=== PATIENT | female | born 1985 | race Caucasian/White ===

== ENCOUNTER → 2020-01-12 14:15 | Outpatient (CLI) | payer BC, SELFPAY ==
--- NOTE | ~2020-01-12 | MMUS_ITS ---
EXAMINATION: MM diagnostic maranda LT w daysi, US breast LT limited HISTORY: Palpable left breast abnormality TECHNIQUE: Additional 3-D tomosynthesis images of the left breast were performed and synthetic 2-D im ages were generated. CAD analysis was submitted and interpreted. High resolution left breast ultrasou nd was performed. COMPARISON: None BREAST PARENCHYMAL COMPOSITION: The breasts are heterogenously dense, which may obscure small masses FINDINGS: MAMMOGRAPHIC FINDINGS: There is a cluster of nonspecific calcifications in the upper outer quadrant of the left breast poste riorly. No discrete mass or architectural distortion is identified. ULTRASOUND: Targeted left breast ultrasound: Normal heterogeneous echotexture without focal solid or cystic mass. IMPRESSION: 1. Clustered nonspecific calcifications upper outer quadrant of the left breast posteriorly. BI-RADS CATEGORY 4-SUSPICIOUS ABNORMALITY RECOMMENDATION: Stereotactic left breast biopsy recommended. Reviewed, dictated and finalized at location A. IMPRESSION: 1. Clustered nonspecific calcifications upper outer quadrant of the left breast posteriorly. BI-RADS CATEGORY 4-SUSPICIOUS ABNORMALITY RECOMMENDATION: Stereotactic left breast biopsy recommended.
== END ==
PROVIDERS: Visit Provider Obstetrics & Gynecology
DX: N63.20 Unspecified lump in the left breast, unspecified quadrant (principal); R92.8 Other abnormal and inconclusive findings on diagnostic imaging of breast
CPT/HCPCS: 76642; 77061; 77065; G0279

== ENCOUNTER → 2020-07-24 06:25 | Outpatient (CLI) | payer BC, SELFPAY ==
[2020-07-24 22:49] LABS: SARS-CoV-2 RNA PCR Negative
== END ==
PROVIDERS: PCP Family Medicine; Visit Provider Obstetrics & Gynecology
DX: Z01.812 Encounter for preprocedural laboratory examination (principal); Z20.822 Contact with and (suspected) exposure to COVID-19
CPT/HCPCS: C9803; U0003; U0005

== ENCOUNTER 2020-07-27 00:53 | Day surgery (SDC) | payer BC, SELFPAY ==
[2020-07-20 10:49] VITALS: BMI 20.3
[2020-07-27 08:33] VITALS: BP 115/68; PULSE 57; RESP 16; TEMP 36.6; O2SAT 100
[2020-07-27] MEDS: ACETAMINOPHEN 500 MG TABLET 1000 MG PO (09:01)
[2020-07-27] MEDS: LACTATED RINGERS 1,000 ML 30 ML IV CONT (09:15)
--- NOTE | 2020-07-27 09:31 | WPDHPUPDATE1 ---
History and Physical Update Update Date/Time: 07/27/20 09:31 History and Physical has been reviewed, including an updated exam of the patient. There are NO changes in the patient's condition. Risks, benefits, and alternatives have been discussed and questions answered. Patient agrees to proceed with procedure.
--- NOTE | 2020-07-27 09:48 | P.PNAN_ITS ---
Anes - Initial Pre Proc Eval Procedure: Operation Date: 07/27/20 10:30 Proposed Procedures p Labiaplasty - Ezekiel Mora MD Date/Time: 07/27/20 09:48 Surgeon: Ezekiel Mora MD Pre Op Diagnosis: hypertrophy of labia Patient Data Age: 35 Gender: F Height: 5 ft 7 in Weight: 60.8 kg Last Vital Signs Temp 97.9 F 07/27/20 08:33 Pulse 57 L 07/27/20 08:33 Resp 16 07/27/20 08:33 BP 115/68 07/27/20 08:33 Pulse Ox 100 07/27/20 08:33 Allergies Allergy/AdvReac Type Severity Reaction Status Date / Time latex AdvReac Mild CHEMICAL Verified 07/27/20 08:39 TYPE RASH FROM GLOVES Home Medications Medication Instructions Recorded Confirmed Type Adults Multivitamin 1 tablet BYMOUTH DAILY 07/20/20 07/27/20 History Patient hx anesthesia problems: none Family hx anesthesia problems: none PMFSH Past Medical History Medical History (Updated 03/29/20 @ 15:58 by Saurav Hermosillo MD) Anemia Bleeding ulcer Chronic interstitial cystitis Fungal infection of toenail GERD (gastroesophageal reflux disease) IUD (intrauterine device) in place Kidney stone UTI (urinary tract infection) Surgical History Surgical History H/O LEEP History of lumpectomy of left breast Hx of shoulder surgery right x2 Family History Family History Grandparent Family history of premature coronary heart disease, Onset Age: 60 Hypertension Family history of elevated blood lipids Malignant neoplasm of prostate Family history of irritable bowel syndrome Social History Social History (Updated 03/29/20 @ 14:59 by Judy Phillips MA) Smoking packs per day: 0.5 Smoking cigarettes per day: 10.0 Years smoked: 10 Smoking pack-years: 5.00 Smoking status: Former smoker Tobacco type: cigarettes Second hand tobacco smoke exposure: Yes Smoking end date: 06/04/16 Alcohol intake: current Drinks per week: 3 Substance use: never Substance use type: does not use Last use: 5 years ago Living arrangements: with family Gender identity (if verbalized by the patient): Female Sexual Orientation (if Verbalized by the Patient): Straight or Heterosexual Spiritual care concerns: No Anes - Eval Final PreProcedure Day of Procedure 07/27/20 09:48 Patient weight: normal Heart: regular rate and rhythm Lungs: clear to auscultation Airway: Mallampati scale class II Neurological: alert and oriented Last oral intake: >/= 8 hours ASA classification: II Emergent: no Anesthetic plan: proceed Anesthesia type and monitoring: general GIVS and standard monitoring Informed Consent: The patient's anesthetic plan and its attendant risks and benefits were discussed with the patient/family/POA. Questions were solicited an d answers provided to the satisfaction of the patient/family/POA.
[2020-07-27 10:00] VITALS: BP 109/71; PULSE 54; RESP 16; TEMP 37.2; O2SAT 100
[2020-07-27] MEDS: ceFAZolin 2 GM/D5W 50 ML 2 GM/50 ML BAG IVPB (10:04)
[2020-07-27] MEDS: LIDO 1%/EPINEPHRINE 1:100,000 50 ML VIAL INFILTRATE (10:26)
--- NOTE | 2020-07-27 10:45 | SUR.OPER ---
LOCAL INJECTED 1017 AT START AND START OF 2ND LABIA.
[2020-07-27 10:51] VITALS: BP 102/64; PULSE 52; RESP 14; O2SAT 98
--- NOTE | 2020-07-27 10:56 | P.OP_ITS ---
Procedure Note - Detailed Date of procedure: 07/27/20 Pre-op diagnosis: hypertrophy of labia Post-op diagnosis: same Procedure performed: Labial plasty, bilateral Description of procedure: The patient was taken the operating room. She was pre pped and draped in dorsal lithotomy position. After mac anesthesia was found be adequate the labia were injected with lidocaine bilaterally. The redundant labia skin of the labia minora was marked with a pen. The margins where incisions were to be made were demarcated with the marking pen. Using Metzenbaum scissors the redundant labia was transected in an anterior-posterior direction. The cautery was used to make the cut surface hemostatic. The labia was then closed with interrupted sutures of 3 0 Vicryl. The patient tolerated the procedure well. She was taken recovery in stable condition. Sponge lap needle counts were correct x2. Surgeon: Ezekiel Mora MD Estimated blood loss (mL): 10 Drains: No Packing: No Pathology: none sent Complications: No immediate complications Condition: stable Disposition: same day Findings: Hypertrophy of bilateral labia minora, otherwise normal
[2020-07-27 11:20] VITALS: BP 116/75; PULSE 50
[2020-07-27 11:50] VITALS: BP 106/67; PULSE 43; RESP 14
[2020-07-27 12:20] VITALS: BP 110/67; PULSE 50; RESP 14
--- NOTE | 2020-07-27 12:43 | SUR.PHASEII ---
1240 pt is doing well, vss, minimal pain. pt waiting on a ride, pt disconnected from vital machine and iv fluids.
== END 2020-07-27 13:38 | disposition home or self-care (01) ==
PROVIDERS: PCP Family Medicine; Visit Provider Obstetrics & Gynecology
PROC: (CPT 56620; principal; 2020-07-27 10:30)
DX: N90.60 Unspecified hypertrophy of vulva (principal); Z87.891 Personal history of nicotine dependence
CPT/HCPCS: 56620; A9270; J0690; J2250; J2405; J2704; J3010; J7120

== ENCOUNTER 2021-02-01 10:54 | Outpatient (CLI) | payer BC, SELFPAY ==
--- NOTE | ~2021-02-01 | US_ITS ---
Please refer to diagnostic mammogram report dated 02/01/2021 for details. Reviewed, dictated and finalized at location A.
--- NOTE | ~2021-02-01 | MM_ITS ---
EXAMINATION: MM diagnostic maranda BI w daysi HISTORY: Palpable right breast abnormality. TECHNIQUE: Additional 3-D tomosynthesis images of the breasts were performed and synthetic 2-D images were generated. CAD analysis was submitted and interpreted. High resolution complete bilateral breas t ultrasound was performed. COMPARISON: Comparison to multiple prior studies sequentially, with oldest reviewed study dated 01/11. BREAST PARENCHYMAL COMPOSITION: The breasts are extremely dense, which lowers the sensitivity of mamm ography. FINDINGS: MAMMOGRAPHIC FINDINGS: There are no suspicious masses, calcifications or architectural distortion in either breast to sugges t malignancy. ULTRASOUND: Complete bilateral breast ultrasound: There are multiple bilateral simple and complicated cysts of andrew th breasts, largest in the right breast at 12:00, 2 cm from the nipple measuring 2.4 cm. There is a c luster of microcysts in the right breast at 4:00, 4 cm from the nipple measuring 6 mm. There is a com plicated 9 mm cyst in the left breast at 11:00, 3 cm from the nipple. No suspicious masses to suggest malignancy. IMPRESSION: 1. No evidence for malignancy in either breast. Multiple bilateral breast cysts. 2. Routine yearly screening mammogram and regular clinical breast examination are recommended. BI-RADS Category 2: Benign finding(s). Reviewed, dictated and finalized at location A. IMPRESSION: 1. No evidence for malignancy in either breast. Multiple bilateral breast cysts . 2. Routine yearly screening mammogram and regular clinical breast examination a re recommended. BI-RADS Category 2: Benign finding(s).
== END 2021-02-01 10:55 | disposition home or self-care (01) ==
LOC: ANHIMG 10:56
PROVIDERS: PCP Family Medicine; Visit Provider Advanced Practice Midwife
DX: N63.10 Unspecified lump in the right breast, unspecified quadrant (principal); R92.2 Inconclusive mammogram
CPT/HCPCS: 76641; 77062; 77066; G0279

== ENCOUNTER 2022-09-17 04:12 | Emergency (ER) | payer BC, SELFPAY ==
--- NOTE | ~2022-09-17 | CT_ITS ---
EXAMINATION: CTA chest PE protocol DATE: 09/17/2022 06:12 INDICATION: Chest pain, history of thoracic outlet syndrome TECHNIQUE: Computed tomography angiography (CTA) of the chest was performed with 100 mL Omnipaque-350 intravenous contrast timed to evaluate the pulmonary arteries. Coronal maximum intensity projection 3D-reconstructions were created by the technologist. The dose-length product (DLP) was 172.91 mGy-cm. Automated exposure control and iterative reconstruction technique were employed. COMPARISON: None. FINDINGS: The pulmonary arteries are well-opacified. No pulmonary embolism is identified. Lungs are f ree of acute opacities. No pleural effusion or pneumothorax. No pathologically enlarged thoracic lymp h nodes are identified. The heart size is normal. IMPRESSION: 1. No pulmonary embolism or acute cardiopulmonary abnormality. Reviewed, dictated and finalized at location A.
[2022-09-17 04:16] VITALS: BP 141/94; PULSE 84; RESP 19; TEMP 36.7; O2SAT 100
--- NOTE | 2022-09-17 05:00 | ECG_ITS ---
Measurements Intervals [place] Rate: 67 P: 78 [place]: 174 QRS: 44 QRSD: 98 T: 18 QT: 410 QTc: 436 Interpretive Statements SINUS RHYTHM POSSIBLE RIGHT VENTRICULAR CONDUCTION DELAY [RSR (QR) IN V1/V2] NO PREVIOUS ECG AVAILABLE FOR COMPARISON Electronically Signed On 09-17-2022 9:23:16 CDT by Courtney Nathan M.D.
[2022-09-17 05:17] VITALS: PULSE 89
[2022-09-17 05:19] LABS: Basophils Absolute Auto 0.1 K/mm3 (0.0-0.1); Eosinophils Absolute Auto 0.1 K/mm3 (0-0.3); Eosinophils Percent Auto 2.4 % (0-4.4); Hematocrit 40.2 % (37.0-47.0); Immature Granulocyte Absolute 0.01 K/mm3 (0.00-0.031); Immature Granulocyte Percent A 0.2 % (0-0.5); Lymphocytes Absolute Auto 1.45 K/mm3 (0.9-3.2); Lymphocytes Percent Auto 24.7 % (18.3-44.2); Mean Corpuscular HGB Conc 32.3 g/dl (32-36); Mean Corpuscular Volume 92.8 fl (80-100); Mean Platelet Volume 9.6 fl (7.4-10.4); Monocytes Absolute Auto 0.4 K/mm3 (0.1-0.6); Monocytes Percent Auto 7.2 % (2.6-8.5); Neutrophils Absolute Auto 3.8 K/mm3 (1.3-6.7); Neutrophils Percent Auto 64.5 % (45.5-73.1); Platelet Count Result 249 k/mm3 (150-375); Red Blood Count 4.33 M/mm3 (4.2-5.4); White Blood Count 5.9 K/mm3 (4.5-10.0)
[2022-09-17 05:29] LABS: Alanine Aminotransferase 19 U/L (6-35); Albumin Level 4.5 g/dL (3.5-5.1); Alkaline Phosphatase 62 U/L (38-126); Anion Gap 6 mmol/L (8-16); Aspartate Amino Transferase 24 U/L (14-36); Bilirubin,Total 0.4 mg/dL (0.2-1.3); Blood Urea Nitrogen 12 mg/dL (7-17); Calcium 8.7 mg/dL (8.4-10.2); Carbon Dioxide 30 mmol/L (22-30); Chloride 102 mmol/L (98-107); Estimated CRCL calculation 100 ml/min; Estimated Glomerular Filt Rate > 60; Glucose 98 mg/dL (65-110); Potassium 3.9 mmol/L (3.4-5.0); Sodium 138 mmol/L (137-145)
[2022-09-17 05:31] LABS: Prothrombin Time 12.6 Seconds (11.1-14.7)
[2022-09-17 05:32] LABS: Partial Thromboplastin Time 29.9 SECONDS (22.3-36.8)
--- NOTE | 2022-09-17 05:36 | ED.GENADULT ---
HPI - General Adult General Chief complaint: Unspecified <Yossi Meneses MD - Last Filed: 09/17/22 07:39> Stated complaint: Right sided collar bone pain <Yossi Meneses MD - Last Filed: 09/17/22 07:39> Time Seen by Provider: 09/17/22 04:48 <Yossi Meneses MD - Last Filed: 09/17/22 07:39> History of Present Illness HPI narrative: Patient 36-year-old female who presents the emergency department with chief complaint of right sided clavicle area discomfort. The patient reports she has history of thoracic outlet syndrome and has had several spinal surgeries. Patient reports that she has a fullness feeling in the right anterior chest and reports that she is concerned that she may have a thrombus. The patient reports that she has a tightness feeling there and reports that its been there all day. The patient states that its not improved by anything and reports not worsened by anything. <Yossi Meneses MD - Last Filed: 09/17/22 07:39> Related Data Home medications: Home Medications Medication Instructions Recorded Confirmed Adults Multivitamin 1 tablet BYMOUTH DAILY 07/20/20 07/27/20 <Yossi Meneses MD - Last Filed: 09/17/22 07:39> Allergies/adverse reactions: Allergies Allergy/AdvReac Type Severity Reaction Status Date / Time latex AdvReac Mild CHEMICAL Verified 09/17/22 04:13 TYPE RASH FROM GLOVES <Yossi Meneses MD - Last Filed: 09/17/22 07:39> Review of Systems Review of Systems: A 10 system review of systems was completed on the patient and is negative except for what is stated in the HPI. Nursing and ancillary documentation was reviewed. <Yossi Meneses MD - Last Filed: 09/17/22 07:39> PMF Past Medical History Medical History: Medical History Anemia Bleeding ulcer Breast cancer screening by mammogram (04/06/22) very dense breast. Mammogram negative. Recheck in 1 year. Chronic interstitial cystitis Fungal infection of toenail GERD (gastroesophageal reflux disease) IUD (intrauterine device) in place Kidney stone UTI (urinary tract infection) <Yossi Meneses MD - Last Filed: 09/17/22 07:39> Surgical History Surgical History: Surgical History H/O LEEP History of lumpectomy of left breast Hx of shoulder surgery right x2 <Yossi Meneses MD - Last Filed: 09/17/22 07:39> Family History Family History: Family History Grandparent Family history of premature coronary heart disease, Onset Age: 60 Hypertension Family history of elevated blood lipids Malignant neoplasm of prostate Family history of irritable bowel syndrome <Yossi Meneses MD - Last Filed: 09/17/22 07:39> Social History Social History: Social History Smoking packs per day: 0.5 Smoking cigarettes per day: 10.0 Years smoked: 10 Smoking pack-years: 5.00 Smoking status: Former smoker Tobacco type: cigarettes Second hand tobacco smoke exposure: Yes Smoking end date: 06/04/16 Alcohol intake: current Drinks per week: 3 Substance use: never Substance use type: does not use Last use: 5 years ago Living arrangements: with family Gender identity (if verbalized by the patient): Female Sexual Orientation (if Verbalized by the Patient): Straight or Heterosexual Spiritual care concerns: No <Yossi Meneses MD - Last Filed: 09/17/22 07:39> Exam Narrative: GENERAL: Well-appearing, well-nourished, and in no acute distress. HEAD: Normocephalic, atraumatic. EYES: PERRLA and EOMI. ENT: Nares clear, no rhinorrhea or epistaxis. Mucous membranes moist. NECK: Supple. CHEST: Clear to auscultatio
[2022-09-17 05:41] LABS: Troponin I < 0.012 ng/mL (0.000-0.034)
[2022-09-17 08:16] VITALS: BP 113/72; PULSE 86; RESP 18; O2SAT 100
[2022-09-17 09:03] VITALS: BP 113/72; PULSE 80; RESP 18; O2SAT 98
== END 2022-09-17 09:05 | disposition home or self-care (01) ==
PROVIDERS: Emergency Medicine; Emergency Provider Emergency Medicine; PCP Family Medicine Sports Medicine
DX: G54.0 Brachial plexus disorders (principal); D64.9 Anemia, unspecified; K21.9 Gastro-esophageal reflux disease without esophagitis; Z87.442 Personal history of urinary calculi; Z87.440 Personal history of urinary (tract) infections
CPT/HCPCS: 36415; 71275; 80053; 84484; 85025; 85610; 85730; 93005; 99284; Q9967

== ENCOUNTER 2024-03-04 08:30 | Inpatient (IN) | payer BC, SELFPAY ==
[2024-03-04 08:37] VITALS: BP 132/89; PULSE 91; RESP 16; TEMP 36.3; O2SAT 100
[2024-03-04] MEDS: KETOROLAC 30 MG/ML VIAL (*BKC) IM (08:57)
[2024-03-04] MEDS: HYDROcodone/acetaminophen (*CRX) 5-325 MG TABLET 2 TAB PO (08:58)
[2024-03-04 10:05] LABS: Basophils Absolute Auto 0.1 K/mm3 (0.0-0.1); Basophils Percent Auto 0.4 % (0.2-1.2); Eosinophils Absolute Auto 0.1 K/mm3 (0-0.3); Eosinophils Percent Auto 0.6 % (0-4.4); Hematocrit 36.3 % (37.0-47.0); Immature Granulocyte Absolute 0.05 K/mm3 (0.00-0.031); Immature Granulocyte Percent A 0.4 % (0-0.5); Lymphocytes Absolute Auto 1.06 K/mm3 (0.9-3.2); Lymphocytes Percent Auto 8.5 % (18.3-44.2); Mean Corpuscular HGB Conc 33.1 g/dl (32-36); Mean Corpuscular Hemoglobin 30.8 pg (26-34); Mean Corpuscular Volume 93.3 fl (80-100); Mean Platelet Volume 9.3 fl (7.4-10.4); Monocytes Absolute Auto 0.7 K/mm3 (0.1-0.6); Monocytes Percent Auto 5.2 % (2.6-8.5); Neutrophils Absolute Auto 10.6 K/mm3 (1.3-6.7); Neutrophils Percent Auto 84.9 % (45.5-73.1); Platelet Count Result 223 k/mm3 (150-375); Red Blood Count 3.89 M/mm3 (4.2-5.4); White Blood Count 12.5 K/mm3 (4.5-10.0)
[2024-03-04 10:15] LABS: Alanine Aminotransferase 17 U/L (6-35); Albumin Level 4.3 g/dL (3.5-5.1); Alkaline Phosphatase 69 U/L (38-126); Anion Gap 10 mmol/L (4-12); Aspartate Amino Transferase 26 U/L (14-36); Bilirubin,Total 0.6 mg/dL (0.2-1.3); Blood Urea Nitrogen 6 mg/dL (7-17); Calcium 8.9 mg/dL (8.4-10.2); Carbon Dioxide 23 mmol/L (22-30); Chloride 104 mmol/L (98-107); Estimated CRCL calculation 103 ml/min; Estimated Glomerular Filt Rate > 60; Glucose 96 mg/dL (65-110); Sodium 137 mmol/L (137-145)
[2024-03-04] MEDS: SODIUM CHLORIDE 0.9% IV 1,000 ML 999 ML IV CONT (10:15)
--- NOTE | 2024-03-04 10:26 | ED.GENADULT ---
HPI - General Adult General Chief complaint: Wound/Laceration Stated complaint: infected spider bite Time Seen by Provider: 03/04/24 08:40 History of Present Illness HPI narrative: This is a 38-year-old female presenting ED with chief complaint of spider bite to her left buttocks. Several days ago she put on a pair of shorts felt pain in her left glute. She thought she saw to spider bites. One of them healed well but the other 1 became red and infected it started about purulent discharge. She had been placed on Bactrim and clindamycin on an outpatient basis but the redness and pain have continued to worsen. She has developed subjective fevers. She denies nausea vomiting or diarrhea. Related Data Home Medications Medication Instructions Recorded Confirmed Adults Multivitamin 1 tablet BYMOUTH DAILY 07/20/20 07/27/20 Allergies Allergy/AdvReac Type Severity Reaction Status Date / Time latex AdvReac Mild CHEMICAL Verified 03/04/24 08:33 TYPE RASH FROM GLOVES PMFSH Past Medical History Medical History Anemia Bleeding ulcer Breast cancer screening by mammogram (04/06/22) very dense breast. Mammogram negative. Recheck in 1 year. Chronic interstitial cystitis Fungal infection of toenail GERD (gastroesophageal reflux disease) IUD (intrauterine device) in place Kidney stone UTI (urinary tract infection) Surgical History Surgical History H/O LEEP History of lumpectomy of left breast Hx of shoulder surgery right x2 Family History Family History Grandparent Family history of premature coronary heart disease, Onset Age: 60 Hypertension Family history of elevated blood lipids Malignant neoplasm of prostate Family history of irritable bowel syndrome Social History Social History Smoking packs per day: 0.5 Smoking cigarettes per day: 10.0 Years smoked: 10 Smoking pack-years: 5.00 Smoking status: Former smoker Tobacco type: cigarettes Second hand tobacco smoke exposure: Yes Smoking end date: 06/04/16 Alcohol intake: current Drinks per week: 3 Substance use: never Substance use type: does not use Last use: 5 years ago Living arrangements: with family Gender identity (if verbalized by the patient): Female Sexual Orientation (if Verbalized by the Patient): Straight or Heterosexual Spiritual care concerns: No Exam Narrative: APPEARANCE: No apparent distress. Head: atraumatic. EYES: EOMI, NOSE: Atraumatic NECK: Trachea midline RESPIRATORY: No increased rate of breathing CARDIOVASCULAR: RRR, ABDOMINAL: Non-distended MUSCULOSKELETAl: No obvious deformities NEURO: Alert. Moving 4/4 extremities SKIN:: Left glute shows a area of central induration and fluctuance. Mild erythema around the site PSYCHIATRIC: Normal affect Course Vital Signs Vital signs: Vital Signs Temperature 97.4 F L 03/04/24 08:37 Pulse Rate 91 03/04/24 08:37 Respiratory Rate 16 03/04/24 08:37 Blood Pressure 132/89 03/04/24 08:37 Pulse Oximetry 100 03/04/24 08:37 Temperature 98.2 F 03/04/24 12:43 Pulse Rate 78 03/04/24 12:43 Respiratory Rate 20 03/04/24 12:43 Blood Pressure 110/73 03/04/24 12:43 Pulse Oximetry 100 03/04/24 12:43 Procedures Abscess I/D other: Date of Incision: 03/04/24 Side (if applicable): left Local Anesthetic: bupivacaine 0.25% Amount of anesthesia used (mL): 10 Technique: incised with #11 blade Amount of fluid expressed (mL): 10 Irrigation: Yes Packing used?: none I&D Results: Pus and Blood Complications: bleeding Medical Decision Making MDM Narrative Medical decision making narrative: -Course: 38-year-old female presenting ED with c
[2024-03-04] MEDS: VANCOMYCIN 1,250 MG/NS 250 ML 1,250 MG/250 ML BAG 166.67 MG IVPB ×2 (11:31→23:15)
[2024-03-04 12:43] VITALS: BP 110/73; PULSE 78; RESP 20; TEMP 36.8; O2SAT 100
--- NOTE | 2024-03-04 13:33 | PM.IMHP ---
H&P: HPI History of Present Illness Date/Time: 03/04/24 13:33 Chief Complaint: Insect Bite Narrative: 38 y/o F presents here with spider bite with PMH of anemia, bleeding ulcer, chronic interstitial cystitis, GERD, and kidney stones. The patient presents here from home for further evaluation of a spider bite to her left buttock. On 02/27 she reports she was putting on a pair of shorts when she noted two areas that were concerning for spider bites to her left buttock. States the wounds were not there that morning. Per her initial evaluation, there were 2 small areas that appeared to be spider bites. One of the wounds healed well without antibiotic intervention. However, the other site developed erythema, pain, and primarily discharged on XX. She initially sought care at a local Urgent Care and was placed on Bactrim 800/160 mg b.i.d. x7 days which she took 4 doses of. Pain continued to worsen and went to her PCP office yesterday and was started on clindamycin 300 mg t.i.d. x7 days. She reports she had purulent drainage then. She was able to take 2 doses of the clindamycin. Despite adjusting therapy, the patient reports the area became more firm and painful overnight. Patient has recently been on multiple antibiotic courses the last 6 months including Augmentin on 01/31/2024 for a UTI. Also on doxycycline, metronidazole, and ciprofloxacin in September of 2023 for a vulvar abscess which she reports did heal without incident or I&D. Currently endorsing body aches, headache, fever, chills/night sweats. Initial VS at presentation: 97.4? F, HR 91, RR 16, 132/89, and 100% on RA. ED workup showed: WBC 12.5, no anemia, no significant electrolyte derangements, creatinine 0.6 and GFR >60. Review of Systems Review of Systems: All systems reviewed & are unremarkable except as noted in HPI and below PMFSH Past Medical History Medical History (Updated 03/04/24 @ 16:11 by Marianne Kenny APRN) Anemia Bleeding ulcer (2009) Breast cancer screening by mammogram (04/06/22) very dense breast. Mammogram negative. Recheck in 1 year. Chronic interstitial cystitis Endometriosis Fungal infection of toenail GERD (gastroesophageal reflux disease) IUD (intrauterine device) in place Kidney stone Shingles (~2021) UTI (urinary tract infection) Surgical History Surgical History (Updated 03/04/24 @ 16:11 by Marianne Kenny APRN) H/O LEEP History of lumpectomy of left breast History of spinal surgery Hx of shoulder surgery right x2 Family History Family History Grandparent Family history of premature coronary heart disease, Onset Age: 60 Hypertension Family history of elevated blood lipids Malignant neoplasm of prostate Family history of irritable bowel syndrome Social History Social History Smoking packs per day: 0.5 Smoking cigarettes per day: 10.0 Years smoked: 10 Smoking pack-years: 5.00 Smoking status: Former smoker Tobacco type: cigarettes Second hand tobacco smoke exposure: Yes Smoking end date: 06/04/15 Alcohol intake: current Drinks per week: 3 Substance use: never Substance use type: does not use Last use: 5 years ago Do You Feel Safe in your Home?: Yes Lack of Transportation: No Lack of Food: Never True Current Housing: I Have Housing Concerned About Future Housing: No Difficulty Paying Gas/Electric Bills: No Difficulty Paying for Meds: No Currently Unemployed: No Education: Master's Degree or Higher Difficulty w/ Childcare or Family Care: No Living arrangements: with family Gender identity (if verbalized by the patient): Female Sexual Orientation (if Verbalized by the Patient): Straight or Heterosexual Spiritual care concerns: No Meds Home Medications and Allergies Home Medications Medication Instructions Recorded Confirmed Type Ad
[2024-03-04 16:00] VITALS: BP 106/63; PULSE 89; RESP 18; TEMP 36.7; O2SAT 100
[2024-03-04] MEDS: LACTATED RINGERS 1,000 ML 125 ML IV CONT (16:47)
[2024-03-04] MEDS: MORPHINE SULFATE (*CRX) 2 MG/ML INJ IV PUSH ×2 (16:52→20:04)
[2024-03-04] MEDS: ceFAZolin 1 GM/NS 50 ML 1 GM/50 ML BAG IVPB ×2 (16:52→22:28)
[2024-03-04] MEDS: HYDROcodone/acetaminophen (*CRX) 5-325 MG TABLET 1 TAB PO ×2 (18:23→22:31)
[2024-03-04 20:52] VITALS: BP 112/65; PULSE 93; RESP 16; TEMP 36.4; O2SAT 98
[2024-03-04] MEDS: MELATONIN 3 MG TABLET PO (23:17)
[2024-03-05] MEDS: MORPHINE SULFATE (*CRX) 2 MG/ML INJ IV PUSH (05:02)
[2024-03-05] MEDS: ceFAZolin 1 GM/NS 50 ML 1 GM/50 ML BAG IVPB ×3 (05:04→20:57)
[2024-03-05] MEDS: LACTATED RINGERS 1,000 ML 125 ML IV CONT (05:06)
[2024-03-05 05:35] VITALS: BP 109/68; PULSE 85; RESP 14; TEMP 37.1; O2SAT 100
[2024-03-05] MEDS: HYDROcodone/acetaminophen (*CRX) 5-325 MG TABLET 1 TAB PO (07:06)
[2024-03-05] MEDS: ONDANSETRON INJ 4 MG/2 ML VIAL IV PUSH ×2 (07:08→11:35)
[2024-03-05 07:25] LABS: Basophils Percent Auto 0.4 % (0.2-1.2); Eosinophils Absolute Auto 0.1 K/mm3 (0-0.3); Eosinophils Percent Auto 1.8 % (0-4.4); Hemoglobin 10.4 g/dL (12.0-15.0); Immature Granulocyte Absolute 0.02 K/mm3 (0.00-0.031); Immature Granulocyte Percent A 0.3 % (0-0.5); Lymphocytes Absolute Auto 0.96 K/mm3 (0.9-3.2); Lymphocytes Percent Auto 13.2 % (18.3-44.2); Mean Corpuscular HGB Conc 32.5 g/dl (32-36); Mean Corpuscular Hemoglobin 30.5 pg (26-34); Mean Corpuscular Volume 93.8 fl (80-100); Monocytes Absolute Auto 0.5 K/mm3 (0.1-0.6); Monocytes Percent Auto 6.6 % (2.6-8.5); Neutrophils Absolute Auto 5.6 K/mm3 (1.3-6.7); Neutrophils Percent Auto 77.7 % (45.5-73.1); Platelet Count Result 208 k/mm3 (150-375); Red Blood Count 3.41 M/mm3 (4.2-5.4); Red Cell Distribution Width 12.2 % (11.5-14.5); White Blood Count 7.3 K/mm3 (4.5-10.0)
[2024-03-05 07:40] LABS: Alanine Aminotransferase 12 U/L (6-35); Albumin Level 3.4 g/dL (3.5-5.1); Alkaline Phosphatase 61 U/L (38-126); Anion Gap 6 mmol/L (4-12); Aspartate Amino Transferase 18 U/L (14-36); Bilirubin,Total 0.3 mg/dL (0.2-1.3); Blood Urea Nitrogen 3 mg/dL (7-17); Calcium 8.4 mg/dL (8.4-10.2); Carbon Dioxide 24 mmol/L (22-30); Chloride 106 mmol/L (98-107); Estimated CRCL calculation 121 ml/min; Estimated Glomerular Filt Rate > 60; Glucose 99 mg/dL (65-110); Potassium 4.1 mmol/L (3.4-5.0); Sodium 136 mmol/L (137-145)
[2024-03-05 08:00] VITALS: BP 120/52; PULSE 88; RESP 18; TEMP 36.6; O2SAT 100
[2024-03-05] MEDS: MULTIVITAMINS THERAPEUTIC TAB (*BKC) 1 TABLET PO (08:18)
[2024-03-05] MEDS: VANCOMYCIN 1,250 MG/NS 250 ML 1,250 MG/250 ML BAG 166.67 MG IVPB ×2 (11:25→23:37)
--- NOTE | 2024-03-05 11:58 | PM.IMPN ---
Progress Note: A&P Assessment and Plan (1) Spider bite: Qualifiers: Encounter type: subsequent encounter Injury intent: accidental or unintentional Qualified Code(s): T63.301D - Toxic effect of unspecified spider venom, accidental (unintentional), subsequent encounter Code(s): T63.301A - Toxic effect of unspecified spider venom, accidental (unintentional), initial encounter Status: Acute Assessment and Plan: - S/p I and D - failed Bactrim and Clindamycin outpatient - started on Vancomycin and Ancef on 03/04 - antipyretics and analgesics p.r.n. - monitor culture (2) SIRS (systemic inflammatory response syndrome): Code(s): R65.10 - Systemic inflammatory response syndrome (SIRS) of non-infectious origin without acute organ dysfunction Status: Acute Assessment and Plan: Vital signs stable within normal limits IV fluid discontinued continue above abx, monitor culture and monitor Plan Diet: Regular DVT Prophylaxis: Sq Lovenox Lines: Peripheral Code Status: Full code Subjective Date/time seen: 03/05/24 11:58 Interval history: Comfortable at bedside awaiting tissue culture Review of Systems Review of Systems: All systems reviewed & are unremarkable except as noted in HPI and below Exam Narrative: General: alert and comfortable Eyes: EOMI, PERRLA ENNT External ears normal, Neck is supple, no masses, Respiratory systems: Clear to auscultation Cardiovascular S1, S2, normal rhythm, no murmur, rub, or gallop; no thrill or palpable murmurs on palpation. Gastrointestinal: soft, non-tender, and non-distended abdomen with no masses; BS present Skin: area of erythema, tenderness with palpation, and induration to central left buttock. post-I&D has medina shaped opening that has been cauterized without active drainage or bleeding. Musculoskeletal: no abnormality and no tenderness, normal ROM Neurologic: Alert and oriented x3, non focal Objective Data Vital Signs Vital Signs: Vital Signs - 24 hr 03/04/24 12:43 03/04/24 16:00 03/04/24 20:00 Temperature 98.2 F 98.1 F Pulse Rate 78 89 Respiratory Rate 20 18 Blood Pressure 110/73 106/63 Pulse Oximetry 100 100 Oxygen Delivery Room Air 03/04/24 20:52 03/05/24 05:35 03/05/24 08:00 Temperature 97.6 F 98.8 F 97.9 F Pulse Rate 93 85 88 Respiratory Rate 16 14 18 Blood Pressure 112/65 109/68 120/52 L Pulse Oximetry 98 100 100 Oxygen Delivery 03/05/24 08:10 Temperature Pulse Rate Respiratory Rate Blood Pressure Pulse Oximetry Oxygen Delivery Room Air Intake/Output Intake/Output: Intake & Output 03/02/24 03/03/24 03/04/24 03/05/24 23:59 23:59 23:59 23:59 Intake Total 3240 2150 Balance 3240 2150 Meds/Results Medications: Active Medications Generic Name Dose Route Start Last Admin Trade Name Freq PRN Reason Stop Dose Admin Acetaminophen 650 mg 03/04/24 13:47 Acetaminophen 325 Mg Tablet PO Q4H PRN Mild Pain (1-3) or Fever Hydrocodone Bitart/Acetaminophen 1 tab 03/04/24 13:47 03/05/24 07:06 Hydrocodone/Acetaminophen (*Crx) 5-325 Mg Tablet PO 1 tab Q4H PRN Administration Moderate Pain (4-6) Hydrocodone Bitart/Acetaminophen 1 tab 03/05/24 07:51 03/05/24 11:26 Hydrocodone/Acetaminophen (*Crx) 10-325 Mg Tablet PO 1 tab Q4H PRN Administration Pain Rated 7-10 Bisacodyl 5 mg 03/04/24 13:47 Bisacodyl 5 Mg Tablet Ec PO DAILY PRN Constipation Vancomycin HCl 1,250 mg in 250 mls @ 166.667 mls/hr 03/04/24 23:00 03/05/24 11:25 Vancomycin 1,250 Mg/Ns 250 Ml IVPB 166.67 mls/hr Q12H DORON Administration Lactated Ringer's 1,000 mls @ 125 mls/hr 03/04/24 12:55 03/05/24 05:06 Lr - Lactated Ringers Iv IV CONT 125 mls/hr .Q8H DORON Administration Cefazolin Sodium 1 gm in 50 mls @ 100 mls/hr 03/04/24 14:00 03/05/24 05:04 Ancef 1 Gm/Ns 50 Ml IVPB 100 mls/hr Q8H DORON Administr
[2024-03-05] MEDS: ACETAMINOPHEN 325 MG TABLET 650 MG PO ×2 (13:03→17:26)
[2024-03-05 14:00] VITALS: BP 109/42; PULSE 88; RESP 18; TEMP 36.7; O2SAT 100
[2024-03-05 16:00] VITALS: BP 119/51; PULSE 84; RESP 18; TEMP 36.2; O2SAT 100
[2024-03-05] MEDS: HYDROcodone/acetaminophen (*CRX) 10-325 MG TABLET 1 TAB PO (20:56)
[2024-03-05] MEDS: MELATONIN 3 MG TABLET PO (20:57)
[2024-03-05 22:00] VITALS: BP 114/76; PULSE 66; RESP 16; TEMP 36.8; O2SAT 98
[2024-03-05 22:52] LABS: Vancomycin Trough 6.8 ug/mL (10.0-20.0)
[2024-03-06] MEDS: HYDROcodone/acetaminophen (*CRX) 10-325 MG TABLET 1 TAB PO (05:09)
[2024-03-06] MEDS: ceFAZolin 1 GM/NS 50 ML 1 GM/50 ML BAG IVPB ×3 (05:13→21:08)
[2024-03-06 06:00] VITALS: BP 123/81; PULSE 79; RESP 18; TEMP 36.4; O2SAT 100
[2024-03-06 06:35] LABS: Basophils Absolute Auto 0.1 K/mm3 (0.0-0.1); Basophils Percent Auto 1.2 % (0.2-1.2); Eosinophils Absolute Auto 0.2 K/mm3 (0-0.3); Eosinophils Percent Auto 4.1 % (0-4.4); Hematocrit 31.6 % (37.0-47.0); Hemoglobin 10.1 g/dL (12.0-15.0); Immature Granulocyte Absolute 0.01 K/mm3 (0.00-0.031); Immature Granulocyte Percent A 0.2 % (0-0.5); Lymphocytes Absolute Auto 1.08 K/mm3 (0.9-3.2); Mean Corpuscular Hemoglobin 30.3 pg (26-34); Mean Corpuscular Volume 94.9 fl (80-100); Mean Platelet Volume 9.5 fl (7.4-10.4); Monocytes Absolute Auto 0.3 K/mm3 (0.1-0.6); Monocytes Percent Auto 7.5 % (2.6-8.5); Neutrophils Absolute Auto 2.5 K/mm3 (1.3-6.7); Platelet Count Result 208 k/mm3 (150-375); Red Blood Count 3.33 M/mm3 (4.2-5.4); Red Cell Distribution Width 11.9 % (11.5-14.5); White Blood Count 4.2 K/mm3 (4.5-10.0)
[2024-03-06 06:48] LABS: Alanine Aminotransferase 12 U/L (6-35); Albumin Level 3.3 g/dL (3.5-5.1); Alkaline Phosphatase 51 U/L (38-126); Anion Gap 4 mmol/L (4-12); Aspartate Amino Transferase 19 U/L (14-36); Bilirubin,Total 0.1 mg/dL (0.2-1.3); Blood Urea Nitrogen 3 mg/dL (7-17); Calcium 8.5 mg/dL (8.4-10.2); Carbon Dioxide 28 mmol/L (22-30); Chloride 105 mmol/L (98-107); Estimated CRCL calculation 103 ml/min; Estimated Glomerular Filt Rate > 60; Glucose 117 mg/dL (65-110); Magnesium 1.8 mg/dL (1.6-2.3); Sodium 137 mmol/L (137-145)
[2024-03-06] MEDS: ACETAMINOPHEN 325 MG TABLET 650 MG PO (08:15)
[2024-03-06] MEDS: MULTIVITAMINS THERAPEUTIC TAB (*BKC) 1 TABLET PO (08:16)
[2024-03-06] MEDS: VANCOMYCIN 1,250 MG/NS 250 ML 1,250 MG/250 ML BAG 166.67 MG IVPB ×2 (08:17→16:20)
[2024-03-06 09:38] VITALS: O2SAT 97
[2024-03-06] MEDS: IBUPROFEN 600 MG TABLET PO (12:49)
[2024-03-06] MEDS: traMADol HCL (*CRX) 50 MG TABLET PO ×2 (13:37→21:08)
[2024-03-06 14:00] VITALS: BP 114/72; PULSE 68; RESP 18; TEMP 36.4; O2SAT 100
--- NOTE | 2024-03-06 16:33 | PM.IMPN ---
Progress Note: A&P Assessment and Plan (1) Spider bite: Qualifiers: Encounter type: subsequent encounter Injury intent: accidental or unintentional Qualified Code(s): T63.301D - Toxic effect of unspecified spider venom, accidental (unintentional), subsequent encounter Code(s): T63.301A - Toxic effect of unspecified spider venom, accidental (unintentional), initial encounter Status: Acute Assessment and Plan: - S/p I and D - failed Bactrim and Clindamycin outpatient - started on Vancomycin and Ancef on 03/04 - antipyretics and analgesics p.r.n. - Culture positive for Staph aureus, awaiting sensitivity (2) SIRS (systemic inflammatory response syndrome): Code(s): R65.10 - Systemic inflammatory response syndrome (SIRS) of non-infectious origin without acute organ dysfunction Status: Acute Assessment and Plan: Vital signs stable within normal limits IV fluid discontinued continue above abx, monitor culture and monitor Plan Diet: Regular DVT Prophylaxis: Sq Lovenox Lines: Peripheral Code Status: Full code Subjective Date/time seen: 03/06/24 16:33 Interval history: Comfortable at bedside awaiting tissue culture sensitive Review of Systems Review of Systems: All systems reviewed & are unremarkable except as noted in HPI and below Exam Narrative: General: alert and comfortable Eyes: EOMI, PERRLA ENNT External ears normal, Neck is supple, no masses, Respiratory systems: Clear to auscultation Cardiovascular S1, S2, normal rhythm, no murmur, rub, or gallop; no thrill or palpable murmurs on palpation. Gastrointestinal: soft, non-tender, and non-distended abdomen with no masses; BS present Skin: area of erythema, tenderness with palpation, and induration to central left buttock. post-I&D has [place] shaped opening that has been cauterized without active drainage or bleeding. Musculoskeletal: no abnormality and no tenderness, normal ROM Neurologic: Alert and oriented x3, non focal Const: General: comfortable and no acute distress Other: , female, nontoxic appearance HENMT: Face/Nose/Sinus: Normal nares present Mouth: Yes moist mucous membranes Eyes: General: appearance normal, both eyes and all related structures Sclera: sclerae normal Pupils: Equal, round and reactive pupils present EOM: EOMs intact bilaterally Resp: Effort & Inspection: normal respiratory effort Auscultation: clear to auscultation bilaterally Cardio: Rate: regular rate Rhythm: regular rhythm Other: S1-S2 present without murmur, rub, ectopy Skin: General skin exam: normal color, no rashes or lesions noted and wounds noted Wounds: wounds noted Other: area of erythema, tenderness with palpation, and induration to central left buttock. post-I&D has cresent [place] shaped opening that has been cauterized without active drainage or bleeding. Neuro: General: gait normal Cranial nerves: Yes Equal, round and reactive pupils present Speech: normal speech Motor exam (neuro): 5/5 motor strength present throughout Sensory Exam: normal sensation Other: A/Ox4 Extrem: General: normal to inspection Psych: Mental Status: mental status grossly normal Affect: normal affect Other: Good insight and judgment, pleasant Objective Data Vital Signs Vital Signs: Vital Signs - 24 hr 03/05/24 22:00 03/05/24 20:00 03/06/24 06:00 Temperature 98.2 F 97.6 F Pulse Rate 66 79 Respiratory Rate 16 18 Blood Pressure 114/76 123/81 Pulse Oximetry 98 100 Oxygen Delivery Room Air 03/06/24 09:38 Temperature Pulse Rate Respiratory Rate Blood Pressure Pulse Oximetry 97 Oxygen Delivery Room Air Intake/Output Intake/Output: Intake & Output 03/03/24 03/04/24 03/05/24 03/06/24 23:59 23:59 23:59 23:59 Intake Total 3240 4490 1280 Output Total 500 Balance 3240 3990 1280 Meds/Results Medications: Active Medications
[2024-03-06 20:15] VITALS: BP 132/88; PULSE 72; RESP 14; TEMP 36.6; O2SAT 99
[2024-03-06] MEDS: MELATONIN 3 MG TABLET PO (21:09)
[2024-03-06 23:22] LABS: Vancomycin Trough 14.8 ug/mL (10.0-20.0)
[2024-03-07] MEDS: VANCOMYCIN 1,250 MG/NS 250 ML 1,250 MG/250 ML BAG 166.67 MG IVPB ×2 (00:58→09:28)
[2024-03-07] MEDS: ceFAZolin 1 GM/NS 50 ML 1 GM/50 ML BAG IVPB (05:12)
[2024-03-07 05:14] VITALS: BP 115/76; PULSE 74; RESP 14; TEMP 37.3; O2SAT 99
[2024-03-07 06:10] LABS: Basophils Absolute Auto 0.1 K/mm3 (0.0-0.1); Basophils Percent Auto 0.9 % (0.2-1.2); Eosinophils Absolute Auto 0.2 K/mm3 (0-0.3); Eosinophils Percent Auto 3.9 % (0-4.4); Hematocrit 36.9 % (37.0-47.0); Hemoglobin 11.8 g/dL (12.0-15.0); Immature Granulocyte Absolute 0.02 K/mm3 (0.00-0.031); Immature Granulocyte Percent A 0.4 % (0-0.5); Lymphocytes Absolute Auto 1.71 K/mm3 (0.9-3.2); Lymphocytes Percent Auto 30.4 % (18.3-44.2); Mean Corpuscular Hemoglobin 30.3 pg (26-34); Mean Corpuscular Volume 94.9 fl (80-100); Mean Platelet Volume 9.2 fl (7.4-10.4); Monocytes Absolute Auto 0.3 K/mm3 (0.1-0.6); Neutrophils Absolute Auto 3.3 K/mm3 (1.3-6.7); Neutrophils Percent Auto 58.4 % (45.5-73.1); Platelet Count Result 242 k/mm3 (150-375); Red Blood Count 3.89 M/mm3 (4.2-5.4); Red Cell Distribution Width 11.9 % (11.5-14.5); White Blood Count 5.6 K/mm3 (4.5-10.0)
[2024-03-07 06:19] LABS: Alanine Aminotransferase 14 U/L (6-35); Albumin Level 3.9 g/dL (3.5-5.1); Alkaline Phosphatase 53 U/L (38-126); Anion Gap 6 mmol/L (4-12); Aspartate Amino Transferase 23 U/L (14-36); Bilirubin,Total 0.1 mg/dL (0.2-1.3); Blood Urea Nitrogen 4 mg/dL (7-17); Calcium 8.8 mg/dL (8.4-10.2); Carbon Dioxide 31 mmol/L (22-30); Chloride 101 mmol/L (98-107); Estimated CRCL calculation 121 ml/min; Estimated Glomerular Filt Rate > 60; Glucose 91 mg/dL (65-110); Magnesium 1.7 mg/dL (1.6-2.3); Potassium 3.7 mmol/L (3.4-5.0); Sodium 138 mmol/L (137-145)
[2024-03-07] MEDS: MULTIVITAMINS THERAPEUTIC TAB (*BKC) 1 TABLET PO (09:29)
[2024-03-07] MEDS: traMADol HCL (*CRX) 50 MG TABLET PO (09:34)
--- NOTE | 2024-03-07 12:46 | PM.DS ---
DS: Admitting Diagnosis Discharge Date 03/07/2024 Admitting Diagnosis left buttock abscess and cellulitis DS: Discharge Diagnosis Discharge Diagnosis (1) Abscess: Code(s): L02.91 - Cutaneous abscess, unspecified Status: Acute (2) Cellulitis: Code(s): L03.90 - Cellulitis, unspecified Status: Acute DS: Summary Hospital Course Hospital Course: 38 y/o F presents here with spider bite with PMH of anemia, bleeding ulcer, chronic interstitial cystitis, GERD, and kidney stones. The patient presents here from home for further evaluation of a spider bite to her left buttock. On 02/27 she reports she was putting on a pair of shorts when she noted two areas that were concerning for spider bites to her left buttock. States the wounds were not there that morning. Per her initial evaluation, there were 2 small areas that appeared to be spider bites. One of the wounds healed well without antibiotic intervention. However, the other site developed erythema, pain, and primarily discharged on XX. She initially sought care at a local Urgent Care and was placed on Bactrim 800/160 mg b.i.d. x7 days which she took 4 doses of. Pain continued to worsen and went to her PCP office yesterday and was started on clindamycin 300 mg t.i.d. x7 days. She reports she had purulent drainage then. She was able to take 2 doses of the clindamycin. Despite adjusting therapy, the patient reports the area became more firm and painful overnight. Patient has recently been on multiple antibiotic courses the last 6 months including Augmentin on 01/31/2024 for a UTI. Also on doxycycline, metronidazole, and ciprofloxacin in September of 2023 for a vulvar abscess which she reports did heal without incident or I&D. Currently endorsing body aches, headache, fever, chills/night sweats. Initial VS at presentation: 97.4? F, HR 91, RR 16, 132/89, and 100% on RA. ED workup showed: WBC 12.5, no anemia, no significant electrolyte derangements, creatinine 0.6 and GFR >60. Patient underwent I adn D, culture came back positive for Staph aureus sensitive to Doxycycline. was on vanc and now discharged on Doxycycline x 10 days F/u with PCP in 3-5 days. Assessment and Plan (1) Spider bite: Qualifiers: Encounter type: subsequent encounter Injury intent: accidental or unintentional Qualified Code(s): T63.301D - Toxic effect of unspecified spider venom, accidental (unintentional), subsequent encounter Code(s): T63.301A - Toxic effect of unspecified spider venom, accidental (unintentional), initial encounter Status: Acute Assessment and Plan: - S/p I and D - failed Bactrim and Clindamycin outpatient - started on Vancomycin and Ancef on 03/04 - antipyretics and analgesics p.r.n. - Culture positive for Staph aureus, sensitive to Doxycycline dsichargd on 10 days of Doxycycline (2) SIRS (systemic inflammatory response syndrome): Code(s): R65.10 - Systemic inflammatory response syndrome (SIRS) of non-infectious origin without acute organ dysfunction Status: Acute Assessment and Plan: Vital signs stable within normal limits IV fluid discontinued continue above abx, monitor culture and monitor F/u with PCP in 3- 5 days Time Spent with Patient Time attestation: Total time spent providing and/or coordinating discharge services: DS: Data Data Completed and Pending Labs on day of discharge: Labs from last 24 hours 03/07/24 03/06/24 06:01 22:58 WBC 5.6 RBC 3.89 L Hgb 11.8 L Hct 36.9 L MCV 94.9 MCH 30.3 MCHC 32.0 RDW 11.9 Plt Count 242 MPV 9.2 Immature Gran % (Auto) 0.4 Neut % (Auto) 58.4 Lymph % (Auto) 30.4 [place] % (Auto) 6.0 Eos % (Auto) 3.9 Baso % (Auto) 0.9 Lymph # (Auto) 1.71 [place] # (Auto) 0.3 Eos # (Auto) 0.2 Baso # (Auto) 0.1 Abs Immat Gran (auto) 0.02 Absolute Neuts (auto) 3.3 Absolute Nucleated RBC 0.000 Nucleated RBC % 0.0
== END 2024-03-07 13:40 | disposition home or self-care (01) | DRG 603 ==
LOC: ANHED 10:32 → ANH3MEDSUR 13:48
PROVIDERS: Student in an Organized Health Care Education/Training Program; Admitting Provider Internal Medicine; Emergency Provider Emergency Medicine; PCP Family Medicine; Visit Provider Internal Medicine
DX: L02.31 Cutaneous abscess of buttock (principal); R65.10 Systemic inflammatory response syndrome (SIRS) of non-infectious origin without acute organ dysfunction; L03.317 Cellulitis of buttock; N30.10 Interstitial cystitis (chronic) without hematuria; K21.9 Gastro-esophageal reflux disease without esophagitis; T63.301A Toxic effect of unspecified spider venom, accidental (unintentional), initial encounter; Z87.442 Personal history of urinary calculi; Z87.891 Personal history of nicotine dependence; Z87.11 Personal history of peptic ulcer disease
CPT/HCPCS: 36415; 80053; 80202; 83735; 84145; 85025; 87040; 87070; 87075; 87181; 87205; 96361; 96365; 96366; 96367; 96372; 96375; 96376; 99285; A9270; G0378; J0690; J1885; J2270; J2405; J3370; J7030; J7120

== ENCOUNTER 2024-03-27 07:15 | Outpatient (RCR) | payer BC, SELFPAY ==
[2024-03-14 08:45] VITALS: BMI 21.2
== END 2024-04-16 12:51 | disposition home or self-care (01) ==
LOC: ANHWOC 07:15
PROVIDERS: PCP Family Medicine; Visit Provider Nurse Practitioner
DX: T63.301A Toxic effect of unspecified spider venom, accidental (unintentional), initial encounter (principal)
CPT/HCPCS: 99212; 99214; G0463